=== PATIENT | male | born 1990 | race Caucasian/White ===

== ENCOUNTER 2017-11-03 14:46 | Emergency (ER) | payer SELFPAY ==
[2017-11-03 14:46] VITALS: BMI 31.9
[2017-11-03 14:56] VITALS: O2SAT 100
--- NOTE | 2017-11-03 15:39 | C.PDOC ---
History Of Present Illness Pt is a 27 year old male, with no significant PMHx, presents to the ED for evaluation of swelling to the shaft of his penis. Patient states he had an erection 2 hours ago. Since his penis was erect, patient he began trying to masturbate. As he started masturbating, patient states he "couldn't bust" and was trying too hard. After his erection subsided, patient noticed the shaft of his penis appeared swollen. He presents to the ED for further evaluation. He notes he has not had sexual intercourse with a partner for around 1 month. Patient denies penile pain/discharge. Patient admits to occasionally smoking cigarettes. He also admits to cocaine and heroin use; reports intranasal heroin use 2 days ago. PMD: None . Time Seen by Provider: 11/03/17 15:03 Chief Complaint (Nursing): Male Genitourinary History Per: Patient History/Exam Limitations: no limitations Onset/Duration Of Symptoms: Hrs (2) Current Symptoms Are (Timing): Still Present Quality Of Discomfort: denies: "Pain" Additional History Per: Patient Past Medical History Reviewed: Historical Data, Nursing Documentation, Vital Signs Vital Signs: Last Vital Signs Temp 98 F 11/03/17 15:56 Pulse 70 11/03/17 15:56 Resp 16 11/03/17 15:56 BP 136/80 11/03/17 15:56 Pulse Ox 100 11/03/17 16:08 - Medical History PMH: No Chronic Diseases Surgical History: No Surg Hx - [facility] Procedures CLOSURE SKIN & SUBCUTANEOUS NEC (06/28/14) IMMOBILIZ/WOUND ATTN NEC (07/23/05) INJECT/INFUSE NEC (11/08/14) Family History: States: No Known Family Hx - Social History Hx Tobacco Use: Yes (ppd) Hx Alcohol Use: No Hx Substance Use: Yes (heroin, cocaine) - Immunization History Hx Tetanus Toxoid Vaccination: Yes (December 2015) Hx Influenza Vaccination: Yes Hx Pneumococcal Vaccination: No Review Of Systems Gastrointestinal: Negative for: Nausea, Vomiting, Abdominal Pain Genitourinary: Positive for: Other (swelling to penile shaft ). Negative for: Penile Pain Physical Exam - Physical Exam Appears: Non-toxic, No Acute Distress Skin: Normal Color, Warm, Dry Head: Atraumatic, Normacephalic Eye(s): bilateral: Normal Inspection Oral Mucosa: Moist Lips: Normal Appearing Neck: Supple Chest: Symmetrical, No Deformity, No Tenderness Cardiovascular: Rhythm Regular, No Murmur Respiratory: Normal Breath Sounds, No Rales, No Rhonchi, No Wheezing Gastrointestinal/Abdominal: Normal Exam, Soft, No Tenderness, No Guarding, No Rebound Male Genital: No Testicular Tenderness, Circumcised, Other (mild swelling along penile shaft, proximal to head of penis. no discharge. testes descended and nontender ) Extremity: Normal ROM, Capillary Refill (less than 2 seconds ) Neurological/Psych: Oriented x3, Normal Speech, Normal Cognition ED Course And Treatment O2 Sat by Pulse Oximetry: 100 (on RA) Pulse Ox Interpretation: Normal Medical Decision Making Medical Decision Making: Impression: penile contusion Progress: On reassessment, patient is resting comfortably, showing no signs of distress and is stable for discharge. Patient is advised to apply ice to the area, avoid masterbating too vigorously, and use lubrication. Advised to f/u with urologist within 1-2 days for further evaluation and/or return to the ED if symptoms persist or worsen. Disposition Counseled Patient/Family Regarding: Studies Performed, Diagnosis, Need For Followup - Disposition Referrals: Woody Sauer MD [Staff Provider] - Disposition: HOME/ ROUTINE Disposition Time: 15:35 Condition: STABLE Additional Instructions: Mr. Juan, thank you for letting us take care of you today. Return to the ER if your symptoms worsen, if you develop pain, or any problems. Do not mastuberate too vigorously; use of a lubricant may also help avoid swelling. Apply cold pack to the penis off and on for the rest of the weekend. Follow up with our urologist (phone number is listed below--you need to call for an appointment). / Forms: General Discharge Instructions Print Language: CAMBODIAN - POA Present On Arrival: None - Clinical Impression Clinical Impression: Contusion of penis, initial encounter - Scribe Statement The provider has reviewed the documentation as recorded by the Scribe (Tina Breaux) Provider Attestation: All medical record entries made by the Scribe were at my direction and personally dictated by me. I have reviewed the chart and agree that the record accurately reflects my personal performance of the history, physical exam, medical decision making, and the department course for this patient. I have also personally directed, reviewed, and agree with the discharge instructions and disposition.
[2017-11-03 15:57] VITALS: BP 136/80; PULSE 70; RESP 16; TEMP 98
== END 2017-11-03 15:56 | disposition home or self-care (01) ==
LOC: C.ER 14:46
DX: S30.21XA Contusion of penis, initial encounter (principal); X58.XXXA Exposure to other specified factors, initial encounter; Y92.9 Unspecified place or not applicable